=== PATIENT | female | born 1970 | race African-American/Black ===

== ENCOUNTER → 2017-09-15 | Outpatient (CLI) | payer BC ==
--- NOTE | 2017-09-15 15:07 | Diagnostic Imaging Report ---
TECHNIQUE: Magnetic resonance imaging of the right KNEE was performed WITHOUT injected contrast. HISTORY: knee pain, evaluate for meniscus tear COMPARISON: None available. FINDINGS: LIGAMENTS AND TENDONS: ACL: Intact PCL: Intact Collateral ligaments: Intact Iliotibial band: Unremarkable Popliteal tendon: Intact Extensor mechanism: Intact JOINT: Menisci: Medial: Intact Lateral: Intact Articular Cartilage: Medial Compartment: Partial thickness cartilage loss Lateral Compartment: No focal defect. Patellofemoral Compartment: Superficial fissuring of the patellar apex. Joint Fluid: Small joint effusion with ruptured Mata cyst. BONE: No focal or infiltrative bone marrow replacing abnormality. No acute fracture. SOFT TISSUES: Otherwise, unremarkable. IMPRESSION: Small joint effusion with ruptured Mata's cyst. No discrete meniscal tear. Medial tibiofemoral compartment partial thickness cartilage loss. Signed by: Dr. Edouard Hand M.D. on 09/15/2017 3:03 PM
== END | disposition home or self-care (01) ==
LOC: MRI 13:45
PROVIDERS: ATTEND Specialist
DX: S83.241A Other tear of medial meniscus, current injury, right knee, initial encounter (principal); M25.461 Effusion, right knee; M71.21 Synovial cyst of popliteal space [Baker], right knee; M94.8X6 Other specified disorders of cartilage, lower leg

== ENCOUNTER 2017-09-30 14:59 | Outpatient (RCR) | payer BC | END 2017-10-05 | LOC: PT 14:59 | PROVIDERS: ATTEND Specialist | DX: M17.11 Unilateral primary osteoarthritis, right knee (principal); S83.221D Peripheral tear of medial meniscus, current injury, right knee, subsequent encounter; M25.561 Pain in right knee; M25.661 Stiffness of right knee, not elsewhere classified; R26.2 Difficulty in walking, not elsewhere classified ==

== ENCOUNTER → 2017-10-07 | Outpatient (CLI) | payer BC ==
--- NOTE | 2017-10-08 08:20 | Diagnostic Imaging Report ---
EXAM: DXA BONE DENSITY INDICATIONS: Osteopenia COMPARISON: None. FINDINGS: Proximal left femur bone mineral density (BMD) (g/cm2): 0.963 Femur T-score (standard deviation relative to young adult mean BMD): 0.2 Femur Z-score (standard deviation relative to age-matched control group):0.5 Lumbar bone mineral density (BMD) (g/cm2):1.000 Lumbar T-score (standard deviation relative to young adult mean BMD): -0.4 Lumbar Z-score (standard deviation relative to age-matched control group):0.2 Change since prior exam (%): Femur:Not applicable. Spine:Not applicable. Change since oldest prior exam (%): Femur:Not applicable. Spine:Not applicable. CONCLUSION: 1. Bone mineral density in the left femur is classified as normal. Fracture risk is not increased. 2. Bone mineral density in the spine is classified as normal. Fracture risk is not increased. World Health Organization Classification: *The Z-score is provided for informational purposes. The T-score is preferable for clinical decisions. When comparing exams, a change of >4% is considered statistically significant. SUGGESTED RECOMMENDATIONS: Normal \T\ Osteopenia:Consideration should be given to use of calcium supplementation, daily multiple vitamins and adequate exercise, as preventive measures against osteoporosis, if clinically indicated. Osteoporosis \T\ Severe Osteoporosis:In addition to the above, consideration should be given to medical therapy against osteoporosis, if clinically indicated. Caleb Reis D.O. Dictated by: Caleb Reis D.O. on 10/08/2017 at 8:21 Electronically approved by: Caleb Reis D.O. on 10/08/2017 at 8:21
--- NOTE | 2017-10-21 08:15 | Diagnostic Imaging Report ---
#[id number] - [id number] #BILATERAL DIGITAL SCREENING MAMMOGRAM WITH CAD: 10/07/2017 CLINICAL: Routine screening. No prior exams were available for comparison. Current study contains 4 films. The tissue of both breasts is heterogeneously dense. This may lower the sensitivity of mammography. Current study was also evaluated with a Computer Aided Detection (CAD) system. There is an irregular density in the left breast middle depth medial region seen on the craniocaudal view only. Scattered benign calcifications in the left breast are noted. No other significant masses, calcifications, or other findings are seen in either breast. IMPRESSION: INCOMPLETE: NEEDS ADDITIONAL IMAGING EVALUATION The irregular density in the left breast is indeterminate. Additional views with focal spot compression and possible ultrasound are recommended. The patient will be contacted by the Mammography Department to schedule this appointment. Caleb Reis Jr., D.O. cw/:10/20/2017 08:03:38 Extension Service Advisor: Nava MORRISON)([place]), [facility] letter sent: Additional Imaging Needed Mammogram BI-RADS: 0 Indeterminate
== END ==
LOC: MAMMO 13:37
PROVIDERS: ATTEND Family Medicine
DX: Z12.31 Encounter for screening mammogram for malignant neoplasm of breast (principal); M85.80 Other specified disorders of bone density and structure, unspecified site
CPT/HCPCS: 77067; 77080